=== PATIENT | male | born 1965 | race Caucasian/White ===

== ENCOUNTER 2019-10-15 20:26 | Emergency (ER) | payer OTHER ==
[2019-10-15] MEDS ORDERED: ONDANSETRON 4 MG/2 ML VIAL IVPB ONE (21:23)
[2019-10-15] MEDS ORDERED: KETOROLAC TROMETHAMINE 30 MG/1 ML VIAL IVPUSH ONE (21:23)
[2019-10-15] MEDS ORDERED: SODIUM CHLORIDE 1,000 ML IV ONE ×2 (21:23→22:39)
[2019-10-15] MEDS ORDERED: KETOROLAC TROMETHAMINE 30 MG/1 ML VIAL ONE (21:27)
[2019-10-15] MEDS ORDERED: ONDANSETRON 4 MG/2 ML VIAL ONE (21:27)
[2019-10-15 21:36] VITALS: BP 142/91; PULSE 68; TEMP 98.1; BMI 26.6
--- NOTE | 2019-10-15 22:42 | PDOC ---
Documentation entered by Ayah Contreras SCRIBE, acting as scribe for Estella Rao MD. Estella Rao MD: This documentation has been prepared by the Diane burgess Nirvannie, SCRIBE, under my direction and personally reviewed by me in its entirety. I confirm that the documentation accurately reflects all work, treatment, procedures, and medical decision making performed by me. History of Present Illness - General Chief Complaint: Vomiting/Diarrhea Stated Complaint: VOMITING & DIARRHEA History Source: Patient Exam Limitations: No Limitations - History of Present Illness Initial Comments: 10/15/19 21:27 HPI: The patient is a 54 year old male, with a significant past medical history of hyperlipidemia and migraines, who presents to the emergency department with 2 days of nausea, vomiting, diarrhea, and headache. As per patient, his symptoms initially onset a NBNB emesis with nonbloody diarrhea and abdominal pain only when vomiting. He notes the onset of a headache described as his typical migraines. He notes taking Sumatriptan, without relief prompting his arrival to the ED. He denies any recent fevers, chills, or dizziness He denies any recent chest pain or shortness of breath. He denies any recent dysuria, frequency, urgency or hematuria. PAST MEDICAL HISTORY: Hyperlipidemia, migraines. PAST SURGICAL HISTORY: no significant history FAMILY HISTORY: no pertinent history SOCIAL HISTORY: Pt lives with family and is employed. MEDICATIONS: reviewed ALLERGIES: As per nursing notes ROS: General: No fevers or chills, no weakness, no weight loss HEENT: No change in vision. No sore throat,. No ear pain CardioVascular: No chest pain or shortness of breath Respiratory:No cough, or wheezing. Gastrointestinal: +nausea, +vomiting, +diarrhea. no constipation, No rectal bleeding Genitourinary: No dysuria, hematuria, or frequency Musculoskeletal: No joint or muscle pain or swelling Neurologic: +Headache. No vertigo, dizziness or loss of consciousness Psychiatric: nor depression Skin: No rashes or easy bruising Endocrine: no increased thirst or abnormal weight change Allergic: no skin or latex allergy All other systems reviewed and normal Physical Exam: General: Well-nourished well-developed individual, no acute distress HEENT: +Dry mucous membranes. Throat: Normal, tonsils normal, no erythema or exudate Neck: Supple, no meningeal signs, no lymphadenopathy Eyes::Pupils equal reactive and round, extraocular motion intact Chest: Nontender to palpation Cardiac: S1-S2 normal, regular rate and rhythm, no murmurs rubs or gallops Respiratory: Lungs clear to auscultation bilateral Abdomen: Soft, nondistended, normal bowel sounds, nontender to palpation diffusely Extremities: Warm, dry, no cyanosis, clubbing, or edema Skin: No rashes Neuro: Alert and oriented x3, nonfocal exam, grossly intact, normal gait Psych: Normal mood and affect 10/15/19 22:41 Patient feels much better headache is improved but still has a mild headache. No further vomiting patient tolerating p.o.'s patient discharged home Past History - Past Medical History Allergies/Adverse Reactions: Allergies Allergy/AdvReac Type Severity Reaction Status Date / Time No Known Allergies Allergy Verified 10/15/19 20:29 Home Medications: Ambulatory Orders Ondansetron [Zofran *Odt*] 8 mg SL TID PRN #12 od.tablet 10/15/19 Pravastatin Sodium [Pravachol (Nf)] 80 mg PO Q48H 10/15/19 Sumatriptan Succinate 100 mg PO DAILY PRN 10/15/19 *Physical Exam - Vital Signs Last Vital Signs Temp Pulse Resp BP Pulse Ox 98.1 F 68 16 142/91 100 10/15/19 21:32 10/15/19 21:32 10/15/19 21:32 10/15/19 21:32 10/15/19 21:32 ED Treatment Course - Medications Given in the ED: ED Medications Discontinued Medications Generic Name Dose Route Start Last Admin Trade Name Freq PRN Reason Stop Dose Admin Sodium Chloride 1,000 mls @ 1,000 mls/hr 10/15/19 21:23 10/15/19 21:31 Normal Saline - IV 10/15/19 22:22 1,000 mls/hr .Q1H ONE Administration Ketorolac Tromethamine 30 mg 10/15/19 21:23 10/15/19 21:32 Toradol Injection - IVPUSH 10/15/19 21:24 30 mg ONCE ONE Administration Ondansetron HCl 8 mg 10/15/19 21:23 10/15/19 21:32 Zofran Injection IVPB 10/15/19 21:24 8 mg ONCE ONE Administration Discharge - Discharge Information Problems reviewed: Yes Clinical Impression/Diagnosis: Nausea vomiting and diarrhea, Migraine Condition: Good Disposition: HOME - Admission No - Additional Discharge Information Prescriptions: Ondansetron [Zofran *Odt*] 8 mg SL TID PRN #12 od.tablet PRN Reason: Nausea - Follow up/Referral Referrals: Jem Thornton MD [Primary Care Provider] - - Patient Discharge Instructions Additional Instructions: Take Tylenol or Motrin as needed for any additional discomfort/headache. I sent a prescription for Zofran to your pharmacy get it filled and take it as often as 3-4 times a day as needed for nausea or vomiting. Return to the emergency department immediately with ANY new, persistent or worsening symptoms. Continue any medications as previously prescribed by your physician. You should follow up with your primary doctor as soon as possible regarding today's emergency department visit. . Please make sure your doctor reviews the results of your emergency evaluation. Thank you for coming to the Emergency Department today for your care. It was a pleasure to see you today. Please note that your evaluation is INCOMPLETE until you follow-up with your doctor. - Post Discharge Activity
== END 2019-10-15 23:00 | disposition home or self-care (01) ==
LOC: FER 20:26
PROC: 3E0333Z Introduction of Anti-inflammatory into Peripheral Vein, Percutaneous Approach (ICD-10-PCS; principal; 2019-10-15)
PROC: 3E033GC Introduction of Other Therapeutic Substance into Peripheral Vein, Percutaneous Approach (ICD-10-PCS; 2019-10-15)
PROC: 3E0337Z Introduction of Electrolytic and Water Balance Substance into Peripheral Vein, Percutaneous Approach (ICD-10-PCS; 2019-10-15)
DX: G43.909 Migraine, unspecified, not intractable, without status migrainosus (principal)
CPT/HCPCS: 99284-25; J7030

== ENCOUNTER 2021-04-06 12:11 | Emergency (ER) | payer OTHER ==
[2021-04-06 12:37] VITALS: TEMP 97.1; BMI 29.9
[2021-04-06] MEDS ORDERED: CASIRIVIMAB/IMDEVIMAB 10 ML in SODIUM CHLORIDE 100 ML IVPB ONE (13:35)
[2021-04-06 17:07] VITALS: BP 140/65; PULSE 85
== END 2021-04-06 17:07 | disposition home or self-care (01) ==
LOC: JER 12:11 → JCOVINFU 12:11
DX: U07.1 COVID-19 (principal)
CPT/HCPCS: 99284-25; M0240; Q0240

== ENCOUNTER 2023-09-06 23:59 | Observation (INO) | payer OTHER ==
[2023-09-07 00:07] VITALS: BMI 29.9
[2023-09-07] MEDS ORDERED: hydrALAZINE HCL 20 MG/ML VIAL IVPUSH ONE (01:02)
[2023-09-07] MEDS ORDERED: ACETAMINOPHEN 325 MG TABLET (FP) PO ONE (01:02)
[2023-09-07] MEDS ORDERED: ACETAMINOPHEN 325 MG TABLET (FP) ONE (01:15)
[2023-09-07] MEDS ORDERED: hydrALAZINE HCL 20 MG/ML VIAL ONE (01:15)
[2023-09-07 01:51] LABS: INR 1.1 (0.83-1.09); PROTHROMBIN TIME (PATIENT) 12.8 SEC (9.7-13.0)
[2023-09-07 01:54] LABS: ACTIVATED PTT 33.2 SECONDS (25.2-36.5)
[2023-09-07 01:58] LABS: CALCIUM 8.5 mg/dL (8.5-10.1)
[2023-09-07 02:00] LABS: BLOOD UREA NITROGEN 18.5 mg/dL (7-18); MAGNESIUM 2.4 mg/dL (1.8-2.4)
[2023-09-07 02:01] LABS: CREATININE 1.1 mg/dL (0.55-1.3)
[2023-09-07] MEDS ORDERED: POTASSIUM CHLORIDE TABS 20 MEQ TABLET.ER (FP) PO ONE ×2 (02:01→02:23)
[2023-09-07 02:03] LABS: BILIRUBIN,TOTAL 0.6 mg/dL (0.2-1); TOT PROT 6.8 g/dl (6.4-8.2)
[2023-09-07 02:06] LABS: N-TERMINAL BNP 28.6 pg/ml (5-125)
[2023-09-07] MEDS ORDERED: KCL 10 MEQ IVPB 10 MEQ/100 ML INFUS.BAG IVPB SCH (02:15)
[2023-09-07] MEDS ORDERED: KCL 10 MEQ IVPB 10 MEQ/100 ML INFUS.BAG IVPB ONE (02:23)
[2023-09-07 02:51] LABS: BASO % 0.6 % (0-2.0); EOS % 2.1 % (0-4.5); HEMATOCRIT 42.3 % (35.4-49); HEMOGLOBIN 14.9 GM/dL (11.7-16.9); LYMPH % 19.3 % (8-40); MCH 29.3 pg (25.7-33.7); MCHC 35.1 g/dl (32.0-35.9); MEAN CELL VOLUME 83.5 fl (80-96); MEAN PLT VOLUME 7.5 fl (7.5-11.1); MONO % 8.6 % (3.8-10.2); NEUT % 69.4 % (42.8-82.8); PLATELET COUNT 203 10^3/uL (134-434); RBC 5.07 M/mm3 (4.00-5.60); RDW 13.5 % (11.9-15.9); WHITE BLOOD COUNT 6.9 K/mm3 (4.0-10.0)
[2023-09-07 04:51] LABS: CHOLESTEROL 214 mg/dL (50-200); LDL CHOLESTEROL (ONLY SJRH) 148 mg/dL (5-100)
[2023-09-07 04:52] LABS: HDL CHOLESTEROL 40 mg/dL (40-60)
[2023-09-07] MEDS ORDERED: SUMAtriptan SUCCINATE 50 MG TABLET PO ONE (05:00)
[2023-09-07] MEDS ORDERED: SUMAtriptan SUCCINATE 50 MG TABLET PO SCH (05:00)
[2023-09-07 07:12] LABS: BASO % 0.8 % (0-2.0); EOS % 3.1 % (0-4.5); HEMATOCRIT 38.2 % (35.4-49); HEMOGLOBIN 13.6 GM/dL (11.7-16.9); LYMPH % 26.8 % (8-40); MCHC 35.6 g/dl (32.0-35.9); MEAN CELL VOLUME 84.2 fl (80-96); MEAN PLT VOLUME 7.1 fl (7.5-11.1); MONO % 11.1 % (3.8-10.2); NEUT % 58.2 % (42.8-82.8); PLATELET COUNT 158 10^3/uL (134-434); RBC 4.53 M/mm3 (4.00-5.60); RDW 13.2 % (11.9-15.9); WHITE BLOOD COUNT 5.2 K/mm3 (4.0-10.0)
[2023-09-07 07:37] LABS: POTASSIUM 4.3 mmol/L (3.5-5.1)
[2023-09-07 07:40] LABS: CALCIUM 8.7 mg/dL (8.5-10.1)
[2023-09-07 07:41] LABS: BLOOD UREA NITROGEN 21.5 mg/dL (7-18)
[2023-09-07 07:44] LABS: CREATININE 0.9 mg/dL (0.55-1.3)
[2023-09-07] MEDS ORDERED: ONDANSETRON *ODT* 4 MG TABLET SL ONE (10:45)
[2023-09-07] MEDS ORDERED: ONDANSETRON 4 MG/2 ML VIAL IVPUSH ONE (10:45)
[2023-09-07] MEDS ORDERED: ASPIRIN COATED 81 MG TABLET.EC PO SCH (13:00)
[2023-09-07] MEDS ORDERED: amLODIPine BESYLATE 5 MG TABLET (FP) ONE (13:20)
[2023-09-07] MEDS ORDERED: ASPIRIN COATED 81 MG TABLET.EC ONE (13:21)
[2023-09-07] MEDS ORDERED: amLODIPine BESYLATE 2.5 MG TABLET (FP) ONE (13:22)
[2023-09-07] MEDS ORDERED: amLODIPine BESYLATE 5 MG TABLET (FP) PO ONE (13:30)
[2023-09-07 15:17] VITALS: TEMP 98.1
[2023-09-07 15:49] VITALS: RESP 16
[2023-09-07 17:38] VITALS: BP 149/85; PULSE 81
[2023-09-07] MEDS ORDERED: ATORVASTATIN CA 40 MG TABLET (FP) PO SCH (22:00)
[2023-09-08] MEDS ORDERED: amLODIPine BESYLATE 5 MG TABLET (FP) PO SCH (10:00)
== END 2023-09-07 17:39 | disposition home or self-care (01) ==
LOC: JER 23:59 → JERBED 09-07 03:38
PROVIDERS: ADMIT Internal Medicine; ATTEND Family Medicine
PROC: 3E0337Z Introduction of Electrolytic and Water Balance Substance into Peripheral Vein, Percutaneous Approach (ICD-10-PCS; principal; 2023-09-07)
DX: R93.0 Abnormal findings on diagnostic imaging of skull and head, not elsewhere classified (principal); R42 Dizziness and giddiness; R03.0 Elevated blood-pressure reading, without diagnosis of hypertension; R51.9 Headache, unspecified; E78.5 Hyperlipidemia, unspecified; R07.89 Other chest pain; G43.909 Migraine, unspecified, not intractable, without status migrainosus; Z86.16 Personal history of COVID-19
CPT/HCPCS: 0241U-QW; 36415; 70450-TC; 70551-TC; 71046-TC-FY; 78452-TC; 80048; 80053; 80061; 83735; 83880; 84484; 85025; 85610; 85730; 93005; 93010; 93017; 93306-TC; 93880-TC; 99285-25; A9502; G0378

== ENCOUNTER 2024-05-29 14:24 | Inpatient (IN) | payer OTHER ==
[2024-05-29] MEDS ORDERED: PANTOPRAZOLE SODIUM 40 MG/100 ML BAG IVPB ONE (15:07)
[2024-05-29] MEDS: PANTOPRAZOLE SODIUM 40 MG VIAL IVPUSH ONE (15:14)
[2024-05-29 15:17] LABS: HEMATOCRIT 20.3 % (35.4-49); MCH 23.3 pg (25.7-33.7); MEAN CELL VOLUME 72.9 fl (80-96); MEAN PLT VOLUME 8.2 fl (7.5-11.1); PLATELET COUNT 58 10^3/uL (134-434); RBC 2.79 M/mm3 (4.00-5.60); RDW 14.6 % (11.9-15.9)
[2024-05-29 15:27] LABS: HEMOGLOBIN 6.5 GM/dL (11.7-16.9)
[2024-05-29 15:29] LABS: POTASSIUM 3.7 mmol/L (3.5-5.1)
[2024-05-29 15:31] LABS: CALCIUM 8.8 mg/dL (8.5-10.1)
[2024-05-29 15:32] LABS: ALBUMIN 3.9 g/dl (3.4-5.0); BLOOD UREA NITROGEN 20.3 mg/dL (7-18)
[2024-05-29 15:36] LABS: BILIRUBIN,TOTAL 0.4 mg/dL (0.2-1); TOT PROT 6.6 g/dl (6.4-8.2)
[2024-05-29 15:47] LABS: RETICULOCYTES 3.92 % (0.5-1.5)
[2024-05-29] MEDS ORDERED: BISACODYL 5 MG TABLET.DR (FP) PO ONE (16:11)
[2024-05-29] MEDS ORDERED: POLYETHYLENE GLYCOL 3350 255 GM BTL PO ONE (16:11)
[2024-05-29] MEDS: PANTOPRAZOLE SODIUM 80 MG in SODIUM CHLORIDE 100 ML IVPB SCH (16:42)
[2024-05-29] MEDS: POLYETHYLENE GLYCOL 3350 255 GM BTL PO ONE (21:47)
[2024-05-29] MEDS: BISACODYL 5 MG TABLET.DR (FP) PO ONE (21:48)
[2024-05-30 00:21] VITALS: BMI 30.2
[2024-05-30 11:06] LABS: BASO % 0.6 % (0-2.0); EOS % 1.7 % (0-4.5); HEMATOCRIT 27.3 % (35.4-49); MCH 24.6 pg (25.7-33.7); MCHC 32.8 g/dl (32.0-35.9); MEAN CELL VOLUME 74.8 fl (80-96); MEAN PLT VOLUME 7.2 fl (7.5-11.1); MONO % 9.2 % (3.8-10.2); NEUT % 66.5 % (42.8-82.8); PLATELET COUNT 187 10^3/uL (134-434); RBC 3.64 M/mm3 (4.00-5.60); RDW 16.5 % (11.9-15.9); WHITE BLOOD COUNT 4.4 K/mm3 (4.0-10.0)
[2024-05-30 11:50] LABS: POTASSIUM 3.1 mmol/L (3.5-5.1)
[2024-05-30 11:53] LABS: ALBUMIN 3.9 g/dl (3.4-5.0); CALCIUM 8.8 mg/dL (8.5-10.1)
[2024-05-30 11:54] LABS: BLOOD UREA NITROGEN 11.4 mg/dL (7-18); MAGNESIUM 2.5 mg/dL (1.8-2.4)
[2024-05-30 11:57] LABS: CREATININE 0.8 mg/dL (0.55-1.3); PHOSPHOROUS 2.5 mg/dL (2.5-4.9)
[2024-05-30 11:58] LABS: BILIRUBIN,TOTAL 1.7 mg/dL (0.2-1); TOT PROT 6.4 g/dl (6.4-8.2)
[2024-05-30] MEDS: POTASSIUM CHLORIDE ORAL LIQUID 20 MEQ/15 ML PO ONE (17:14)
[2024-05-31 09:08] LABS: HEMATOCRIT 26.2 % (35.4-49); HEMOGLOBIN 8.7 GM/dL (11.7-16.9); MCH 24.4 pg (25.7-33.7); MEAN CELL VOLUME 73.9 fl (80-96); MEAN PLT VOLUME 6.9 fl (7.5-11.1); PLATELET COUNT 183 10^3/uL (134-434); RBC 3.55 M/mm3 (4.00-5.60); RDW 15.9 % (11.9-15.9)
[2024-05-31 09:18] LABS: POTASSIUM 3.8 mmol/L (3.5-5.1)
[2024-05-31 09:21] LABS: ALBUMIN 3.6 g/dl (3.4-5.0); BLOOD UREA NITROGEN 13.4 mg/dL (7-18); CALCIUM 8.5 mg/dL (8.5-10.1); MAGNESIUM 2.2 mg/dL (1.8-2.4)
[2024-05-31 09:24] LABS: CREATININE 0.8 mg/dL (0.55-1.3)
[2024-05-31 09:25] LABS: BILIRUBIN,TOTAL 0.8 mg/dL (0.2-1)
[2024-05-31] MEDS: IRON SUCROSE INJECTION 200 MG in SODIUM CHLORIDE 100 ML IVPB ONE (09:49)
[2024-05-31 13:02] VITALS: BP 143/73; PULSE 74; RESP 20; TEMP 98.2
== END 2024-05-31 13:06 | disposition home or self-care (01) | DRG 378 ==
LOC: JER 14:24 → JERBED 15:24 → J8W 18:29
PROVIDERS: ADMIT Internal Medicine; ATTEND Internal Medicine
PROC: 0DB68ZX Excision of Stomach, Via Natural or Artificial Opening Endoscopic, Diagnostic (ICD-10-PCS; 2024-05-30)
PROC: 30233N1 Transfusion of Nonautologous Red Blood Cells into Peripheral Vein, Percutaneous Approach (ICD-10-PCS; 2024-05-30)
PROC: 0DJD8ZZ Inspection of Lower Intestinal Tract, Via Natural or Artificial Opening Endoscopic (ICD-10-PCS; principal; 2024-05-30 14:00)
DX: K92.0 Hematemesis (principal); D61.818 Other pancytopenia; D64.9 Anemia, unspecified; R42 Dizziness and giddiness; E78.5 Hyperlipidemia, unspecified; K29.50 Unspecified chronic gastritis without bleeding; K29.80 Duodenitis without bleeding; K21.9 Gastro-esophageal reflux disease without esophagitis
CPT/HCPCS: 36415; 36430; 71045-TC-FY; 80053; 82272; 83540; 83550; 83735; 84100; 85025; 85027; 85045; 86850; 86900; 86901; 86922; 88305-TC; 88342-TC; 93005; 93010; 99291; J1756; P9037; P9038; P9058

== ENCOUNTER 2024-06-09 11:46 | Day surgery (SDC) | payer OTHER ==
[2024-06-09] MEDS: FERRIC CARBOXYMALTOSE 750 MG in SODIUM CHLORIDE 250 ML IVPB ONE (12:15)
[2024-06-09 13:14] VITALS: BP 135/69; PULSE 69; RESP 19; TEMP 98.2
== END 2024-06-09 12:55 | disposition home or self-care (01) ==
LOC: FINFUSION 11:46 → FM/S 11:47 → FINFUSION 12:55
PROVIDERS: ATTEND Family Medicine
PROC: 3E033GC Introduction of Other Therapeutic Substance into Peripheral Vein, Percutaneous Approach (ICD-10-PCS; principal; 2024-06-09)
DX: D50.9 Iron deficiency anemia, unspecified (principal)
CPT/HCPCS: 96365; J1439

== ENCOUNTER 2024-06-16 12:12 | Day surgery (SDC) | payer OTHER ==
[2024-06-16] MEDS: FERRIC CARBOXYMALTOSE 750 MG in SODIUM CHLORIDE 250 ML IVPB SCH (12:37)
[2024-06-16 13:31] VITALS: BP 130/90; PULSE 79; RESP 16; TEMP 98.6
== END 2024-06-16 13:32 | disposition home or self-care (01) ==
LOC: FINFUSION 12:12 → FM/S 12:13 → FINFUSION 13:32
PROVIDERS: ATTEND Family Medicine
PROC: 3E033GC Introduction of Other Therapeutic Substance into Peripheral Vein, Percutaneous Approach (ICD-10-PCS; principal; 2024-06-16)
DX: D50.9 Iron deficiency anemia, unspecified (principal)
CPT/HCPCS: 96365; J1439